=== PATIENT | female | born 1940 | race Caucasian/White ===

== ENCOUNTER → 2016-10-16 | Outpatient (CLI) | payer BC ==
[~2016-10-16] MED LIST: ALPR-411 PO; CALCTAB5 PO; CHOL100010 PO; LISI-461 PO; MULT-506 PO
--- NOTE | 2016-10-16 14:51 | MAMMOGRAPHY REPORT ---
BILATERAL DIGITAL SCREENING MAMMOGRAM WITH CAD: 10/16/2016 CLINICAL HISTORY: Routine screening. Patient has no complaints. TECHNIQUE: Current study was also evaluated with a Computer Aided Detection (CAD) system. Bilatera l CC and MLO views were obtained. COMPARISON: Comparison is made to exams dated: 08/31/2014 mammogram, 10/28/2012 mammogram, 09/11/2011 mammogram, 07/23/2010 mammogram - [facility], and 04/24/2009. BREAST COMPOSITION: The tissue of both breasts is heterogeneously dense, which may obscure small ma sses. FINDINGS: No suspicious masses, calcifications, or areas of architectural distortion are noted in e ither breast. There has been no significant interval change compared to prior exams. Benign-appeari ng left breast masses are stable compared to prior exams. Scattered bilateral benign-appearing calc ifications are not significantly changed. IMPRESSION: ACR BI-RADS CATEGORY 2: BENIGN There is no mammographic evidence of malignancy. A 1 year screening mammogram is recommended. The p atient will receive written notification of the results. Approximately 10% of breast cancers are not detected with mammography. A negative mammographic repor t should not delay biopsy if a clinically suggestive mass is present. Kailey Ruffin M.D. ah/:10/16/2016 14:30:43 Supervisor Irrigation: Sofya VILLALPANDO(Landry)(M), [facility] letter sent: Normal 1/2 BI-RADS Code: ACR BI-RADS Category 2: Benign
== END | disposition home or self-care (01) ==
LOC: C.MAMM 13:48
PROVIDERS: ATTEND Obstetrics & Gynecology
DX: Z12.31 Encounter for screening mammogram for malignant neoplasm of breast (principal)

== ENCOUNTER → 2017-07-30 | Outpatient (CLI) | payer BC ==
[2017-07-30 15:18] LABS: ALT/SGPT 26 U/L (12-78); BLOOD UREA NITROGEN 24 mg/dl (7-18); BUN/CREATININE RATIO 27.5 (10-20); CALCIUM 9.1 mg/dl (8.5-10.1); CARBON DIOXIDE 31 mmol/L (21-32); CHLORIDE 102 mmol/L (98-107); CREATININE 0.86 mg/dl (0.60-1.20); GLUCOSE 109 mg/dl (70-99); POTASSIUM 3.7 mmol/L (3.5-5.1); SODIUM 139 mmol/L (136-145)
[2017-07-30 15:21] LABS: ALB/GLOB RATIO 1.1 (0.9-2); ALKALINE PHOSPHATASE 78 U/L (45-117); AST/SGOT 21 U/L (15-37)
[2017-07-31 05:49] LABS: ESTIMATED AVERAGE GLUCOSE 114 mg/dl; HA1C FLAG Normal (Normal)
== END | disposition home or self-care (01) ==
LOC: C.LAB1850 13:43
PROVIDERS: ATTEND Internal Medicine
DX: E55.9 Vitamin D deficiency, unspecified (principal); I10 Essential (primary) hypertension; R73.03 Prediabetes

== ENCOUNTER → 2017-10-01 | Outpatient (CLI) | payer BC | END | disposition home or self-care (01) | LOC: C.MAMM 14:00 | PROVIDERS: ATTEND Internal Medicine | DX: M85.852 Other specified disorders of bone density and structure, left thigh (principal); M85.851 Other specified disorders of bone density and structure, right thigh ==

== ENCOUNTER 2017-10-15 17:26 | Emergency (ER) | payer BC, OTHER ==
[~2017-10-15] VITALS: Ht 165.1 cm; Wt 64.8 kg
[2017-10-15 17:35] VITALS: TEMP 36.7; Ht 165.1 cm; Wt 64.8 kg
[2017-10-15] MEDS ORDERED: ALPRAZOLAM 0.5 MG TAB PO STA (18:06)
[2017-10-15] MEDS ORDERED: CZR25 PO (18:37)
[2017-10-15] MEDS ORDERED: LOSA1TAB PO (18:37)
[2017-10-15] MEDS ORDERED: TRAZ100T29 PO (18:37)
[2017-10-15] MEDS ORDERED: DIPHTHERIA/TETANUS/PERTUSSIS 0.5 ML SYR/VIAL IM. ONE (18:45)
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
[2017-10-15 19:23] VITALS: BP 162/92; PULSE 77; O2SAT 98
--- NOTE | 2017-10-15 19:31 | EMERGENCY ROOM VISIT NOTE ---
ED Visit Note First contact with patient: 19:00 The patient was seen and examined with PA. I agree with the history, physical and findings. Patient does not wish to have any imaging or blood work done and states she just wants a tetanus shot wants to go home. Please see the note for disposition and details.
== END 2017-10-15 19:26 | disposition home or self-care (01) ==
LOC: C.EDB 17:28 → C.EDD 19:26
DX: S30.811A Abrasion of abdominal wall, initial encounter (principal); S50.311A Abrasion of right elbow, initial encounter; S50.312A Abrasion of left elbow, initial encounter; S80.811A Abrasion, right lower leg, initial encounter; V03.90XA Pedestrian on foot injured in collision with car, pick-up truck or van, unspecified whether traffic or nontraffic accident, initial encounter; W22.8XXA Striking against or struck by other objects, initial encounter; I10 Essential (primary) hypertension; Z23 Encounter for immunization

== ENCOUNTER → 2018-02-02 | Outpatient (CLI) | payer BC ==
[~2018-02-02] MED LIST changes: -ALPR-411 PO; -CALCTAB5 PO; -CHOL100010 PO; +CZR25 PO; -LISI-461 PO; +LOSA1TAB PO; -MULT-506 PO; +TRAZ100T29 PO
[2018-02-02 09:38] LABS: BASO % 0.5 %; BASO ABS # 0.02 K/uL (0-0.2); EOS % 1.9 %; EOS ABS # 0.07 K/uL (0-0.5); HEMATOCRIT 37.6 % (37-47); HEMOGLOBIN 12.8 g/dL (12.0-16.0); LYMPH % 37.7 %; LYMPH ABS # 1.38 K/uL (1.2-3.4); MEAN CELL VOLUME 88.5 fL (80-100); MEAN CORPUSCULAR HEMOGLOBIN 30.1 pg (25-34); MONO % 10.9 %; NEUT ABS # 1.79 K/uL (1.4-6.5); PLATELET COUNT 246 K/uL (130-400); RED CELL DISTRIBUTION WIDTH CV 12.7 % (11.5-14.5); RED CELL DISTRIBUTION WIDTH SD 41.2 fL (36.4-46.3); WHITE BLOOD COUNT 3.66 K/uL (4.8-10.8)
[2018-02-02 11:49] LABS: HEMOGLOBIN A1C 5.5 % (4.5-5.6)
[2018-02-02 13:55] LABS: ALBUMIN 3.6 gm/dl (3.4-5.0); ALT/SGPT 24 U/L (12-78); AST/SGOT 26 U/L (15-37); BLOOD UREA NITROGEN 18 mg/dl (7-18); CALCIUM 8.9 mg/dl (8.5-10.1); CARBON DIOXIDE 29 mmol/L (21-32); CHOLESTEROL 188 mg/dl (0-200); CREATININE 0.86 mg/dl (0.60-1.20); GLUCOSE 93 mg/dl (70-99); SODIUM 141 mmol/L (136-145)
[2018-02-02 14:05] LABS: ALKALINE PHOSPHATASE 75 U/L (45-117); LDL CHOLESTEROL CALCULATED 114 mg/dl; TOTAL PROTEIN 6.9 gm/dl (6.4-8.2)
== END | disposition home or self-care (01) ==
LOC: C.LAB1850 07:44
PROVIDERS: ATTEND Internal Medicine
DX: R73.03 Prediabetes (principal); I10 Essential (primary) hypertension; E55.9 Vitamin D deficiency, unspecified; E78.5 Hyperlipidemia, unspecified

== ENCOUNTER → 2018-04-22 | Outpatient (CLI) | payer BC ==
--- NOTE | 2018-04-22 09:41 | DIAGNOSTIC IMAGING REPORT ---
L HUMERUS MIN 2 VIEWS ROUTINE HISTORY: 77 years-old Female M67.912 Biceps tendinosis of left [id number] acute left shoulder pain COMPARISON: Chest radiograph 03/01/2015 TECHNIQUE: 2 views of the left humerus FINDINGS: There are at least mild degenerative changes about the glenohumeral and AC joints. There is no acute fracture or dislocation identified. Soft tissues are unremarkable without opaque foreign body. IMPRESSION: No acute fracture. The above report was generated using voice recognition software. It may contain grammatical, syntax or spelling errors. Electronically signed by: Maciel Hartley M.D. 04/22/2018 9:40 AM Dictated Date/Time: 04/22/2018 9:38 AM
== END | disposition home or self-care (01) ==
LOC: C.RAD1850 09:31
PROVIDERS: ATTEND Physician Assistant
DX: M67.912 Unspecified disorder of synovium and tendon, left shoulder (principal)

== ENCOUNTER 2019-07-19 08:10 | Observation (INO) ==
[2019-07-19 13:23] LABS: Platelet Count 317 K/uL (130-400)
[2019-07-19 13:46] LABS: INR 1.1 (0.9-1.1); Partial Thromboplastin Ratio 0.9; Partial Thromboplastin Time 25.4 Seconds (21.0-31.0); Prothrombin Time 11.4 Seconds (9.0-12.0)
[2019-07-19] MEDS ORDERED: ACETAMINOPHEN 500 MG TAB PO PRN (14:54)
--- NOTE | 2019-07-19 15:08 | XRay Report ---
XR chest inspiratory-expiratory CLINICAL HISTORY: post thoracentesis PLEURAL EFFUSION COMPARISON STUDY: 07/12/2019 FINDINGS: There is evidence for interval left-sided thoracentesis with marked reduction in the amount of pleural fluid on the left. There is a persistent small right pleural effusion. There are basilar atelectatic changes. No pneumothorax is visualized.[ IMPRESSION: 1. Near complete drainage of the previous identified left pleural effusion 2. Persistent small right pleural effusion 3. Basilar atelectasis 4. No evidence of pneumothorax Electronically signed by: Kojo Gonzalez M.D. 07/19/2019 3:07 PM
--- NOTE | 2019-07-19 15:21 | Ultrasound Report ---
US thoracentesis CLINICAL HISTORY: Pleural effusion COMPARISON STUDY: CT scan dated 07/19/2019 FINDINGS: A timeout was performed. The risks of the procedure were explained the patient informed consent was obtained. The patient was prepped and draped in sterile fashion. The skin was anesthetized 1% lidocaine. Under ultrasound guidance, a left-sided thoracentesis was performed. 1450 cc of straw-colored fluid w as removed. Thousand cc was sent to the laboratory for cytological analysis. There were no immediate complications. A postprocedure x-ray revealed no evidence of pneumothorax. Th e patient will be observed for 2 hours prior to anticipated discharge. IMPRESSION: 1. Successful left-sided thoracentesis. 1450 cc of fluid was removed. Electronically signed by: Kojo Gonzalez M.D. 07/19/2019 3:20 PM
--- NOTE | 2019-07-19 16:57 | XRay Report ---
XR chest inspiration/expiratio CLINICAL HISTORY: post thorocentesis at 16:45 COMPARISON STUDY: Chest 07/19/2019. FINDINGS: Question tiny pneumothorax versus a skin fold within the left upper lung zone. Interval dev elopment of a left lower lung zone airspace opacity. Small right pleural effusion and right basilar d ensities persist. The heart is normal in size. IMPRESSION: 1. Questionable tiny pneumothorax versus skinfold within the left upper lung zone. 2. Interval development of left lower lung zone airspace opacity. This favors reexpansion pulmonary e zoe. An aspiration pneumonia could also have a similar appearance. Electronically signed by: Tera Flowers M.D. 07/19/2019 4:55 PM
--- NOTE | 2019-07-19 18:00 | History & Physical Report ---
Date of Service July 19, 2019 Assessment & Plan (1) Pneumothorax: - S/P thoracentesis on 07/19 for 1450 mL - reports experiencing an episode of SOB and coughing which may correlate with reexpansion - CXR suggests a possible trace pneumothorax vs skinfold and interval development of a LLL opacity which favors reexpansion pulmonary edema but aspiration pneumonia can have similar findings but unlikely at this point - Oxygen saturations have been acceptable; will use continuous oxygen overnight given pneumothorax - Repeat CXR in AM - if any respiratory change will need stat imaging - likely small pneumothorax will resolve spontaneously without further intervention Observation overnight. Likely D/C tomorrow. Present on Admission?: Yes (2) Metastatic adenocarcinoma: - New diagnosis this month - cytology suggests likely ovarian primary with metastasis - follows with Dr. Gallo and Pediatric Cardiologist/Onc in [place] - S/P Paracentesis on 07/07 - Has not initiated chemotherapy at this point; H/O hysterectomy in past due to benign fibroid condition Present on Admission?: Yes (3) Hypertension: - Systolics largely 140-160 - states she normally takes her Losartan and Metoprolol in the evening and likely component of anxiety/stress - Continue Losartan 75 mg HS and Toprol XL 25 mg daily Present on Admission?: Yes (4) Anxiety: - Anxiety/Depression/Insomnia - Does endorse some increased anxiety especially since diagnosis - Will continue Vistaril and Trazadone; per outpatient records it appears she was previously on benzos which were discontinued -- She does endorse some insomnia - if these medications do not help tonight could consider Benadryl; will try to avoid Benzo/Ambien if possible given the possible respiratory depression it can cause in the setting of pneumothorax History of Present Illness Chief Complaint: Shortness of Breath Primary Care Provider: Randall Dunne MD Ms. Blanco is a 78 y/o female with PMHx of HTN, Anxiety/Depression, Insomnia, and Metastatic Adenocarcinoma suggested of Ovarian origin who is S/P thoracentesis this afternoon. Patient presented to PCP earlier this month for early satiety and abdominal bloating. She was ultimately found to have concerns for signficant ascites, pleural effusions, and lesions suggesting a possible carcinomatosis. She underwent paracentesis on 07/07 with cytology suggesting metastatic adenocarcinoma more specifically serous adenocarcinoma that is likely ovarian in origin. Patient underwent a hysterectomy in the past for a benign fibroid condition. She underwent thoracentesis for pleural effusions and further cytology which is pending. She also saw Gyne Onc in [place] yesterday and per Pulm notes the plan is to initiate 3 rounds of chemotherapy followed by repeat staging. She did have some coughing and shortness of breath after thoracentesis. CXR does show a trace pneumothorax and reexpansion edema. Currently she has no respiratory distress and lungs are clear. She does have a intermittent cough but states that has been ongoing prior to the thoracentesis. She does report some worsening of her anxiety since her diagnosis but appears calm at this time. Allergies Allergy/AdvReac Type Severity Reaction Status Date / Time lisinopril Allergy Unknown UNKNOWN Verified 07/19/19 11:00 niacin Allergy Unknown COUGH Verified 07/19/19 11:00 UBALDO Inhibitors AdvReac Verified 07/19/19 11:00 Home Medications Home Medications Medication Instructions Recorded Confirmed Type biotin 5 mg capsule 5 mg PO DAILY cap 06/27/19 07/20/19 History losartan 50 mg tablet 75 mg PO DAILY #180 tab 06/27/19 07/20/19 History magnesium citrate 125 mg capsule 125 mg PO DAILY cap 06/27/19 07/20/19 History metoprolol succinate ER 25 mg 25 mg PO DAILY #1 tab 06/27/19 07/20/19 History tablet,extended release 24 hr multivitamin tablet 1 tab PO DAILY 06/27/19 07/20/19 History trazodone 100 mg tablet 100 mg PO HS #60 tab 06/27/19 07/20/19 History hydroxyzine HCl 25 mg tablet 25 mg PO HS PRN #30 tab 07/08/19 07/20/19 Rx furosemide 20 mg tablet 20 mg PO DAILY #30 tab 07/12/19 07/20/19 Rx Past Med/Surg History Medical History Pleural effusion due to another disorder (Acute) Ascites (Acute) Fullness of abdomen Bloating Acid reflux (Acute) Anxiety (Acute) Aortic regurgitation (Acute) Arthritis (Acute) Chronic pain of toes of both feet (Acute) Depression (Acute) History of osteopenia (Acute) Hyperlipidemia (Acute) Hypertension (Acute) Insomnia (Acute) Mitral regurgitation (Acute) Patent foramen ovale (Acute) Prediabetes (Acute) Rotator cuff tear, left (Acute) Sleep disturbance (Acute) Tricuspid regurgitation (Acute) Vitamin D deficiency disease (Acute) Diverticulosis (Acute) Leukocytopenia (Acute) Hypertension (Acute) Surgical History S/P abdominal hysterectomy Family History Uncle Gastric cancer Sister Hypertension Grandfather (Maternal) Laryngeal cancer Mother Leukemia Grandmother (Maternal) Liver cancer Social History Preferred Language: [place] Operations Manager Station Required: No Beliefs That Will Affect Care: None marital status: Current Living Situation: Alone current occupational status: retired Feels Safe at Home: Yes Smoking Status: Never smoker Hx Alcohol Use: Yes Alcohol type: wine Hx Substance Use: No Seatbelt Use: always Sunscreen Use: Yes Review of Systems Constitutional: no fever, no chills, no fatigue and no anorexia Eyes: no worsening vision Ear, Nose, Mouth, Throat: + hoarseness; no nasal congestion, no sore throat and no dysphagia Respiratory: + cough; no dyspnea, no sputum production and no wheezing Cardiovascular: no chest pain, no palpitations, no lightheadedness and no edema Gastrointestinal: no abdominal pain, no nausea, no vomiting, no constipation and no diarrhea/loose stools Genitourinary: no dysuria Musculoskeletal: no body aches Integumentary: no rash Neurologic: no tingling and no numbness Psychiatric: + anxiety Physical Exam Constitutional: well developed and well nourished; no acute distress and not ill appearing Eyes: + anicteric sclerae ENMT: Ears: no hearing impairment Mouth: oral mucous membranes not dry Throat: uvula midline; no posterior oropharynx abnormality Neck: trachea midline Respiratory: normal respiratory effort lung monte largely clear with some mild crackles in LLL region. Good aeration and no coughing with deep inspiration Cardiovascular: Rate/Rhythm: regular rate and regular rhythm Heart Sounds: no murmur Vessels: no JVD Extremities: normal capillary refill; no edema Gastrointestinal (Abdomen): Inspection/Auscultation: normal bowel sounds Percussion/Palpation: abdomen soft; abdomen nontender Musculoskeletal: no cyanosis or clubbing, extremities motor strength 5/5 Head/Neck/Chest: normocephalic and head atraumatic Skin: no rashes, warm and dry Neurologic: moves all extremities Psychiatric: A+Ox3, euthymic affect Results & Data Vital Signs (Past 12 Hours) Vital Signs Temp Pulse Resp BP Pulse Ox 07/19/19 16:10 65 18 165/82 H 94 07/19/19 15:10 36.6 C 66 18 155/104 H 96 07/19/19 13:16 36.7 C 71 20 168/72 H 93 Code Status & VTE Plan VTE Prophylaxis Plan VTE Prophylaxis will be ordered: No Supervising Physician Co-Signing Physician Notes Patient seen and examined with Abbey LI. I agree with their exam findings, review of systems, assessment and plan. I personally reviewed the lab work and imaging as well. patient with some slight re-expansion edema in left lower lobe of lung and possible small pneumothorax after thoracentesis breathing well, no chest pain, saturations stable - Possible pneumothorax s/p thoracentesis: observe overnight 2L NC continuous, keep saturations > 95% repeat CXR in the morning to determine if pneumothorax has resolved for full details see H&P she will be on observation PG Care Time/CCT Total # of Minutes Spent Total Time Spent with Patient: Total time spent is greater than 50% in coordination of care (as documented) at patient's floor/unit and/or counseling patient:
[2019-07-19] MEDS ORDERED: ACETAMINOPHEN 325 MG TAB PO PRN (19:03)
[2019-07-19] MEDS ORDERED: ONDANSETRON INJ 2 MG/ML 2 ML VIAL IV PRN (19:03)
[2019-07-19] MEDS ORDERED: TRAZODONE HCL 100 MG TAB PO SCH (21:00)
[2019-07-19] MEDS ORDERED: METOPROLOL SUCC 25MG EXT REL TAB PO SCH (21:00)
[2019-07-19] MEDS ORDERED: LOSARTAN POTASSIUM 25 MG TAB PO SCH (21:00)
--- NOTE | 2019-07-20 08:26 | XRay Report ---
XR chest 2V PA/lateral CLINICAL HISTORY: Reexpansion pulmonary edema. Possible post thoracentesis pneumothorax COMPARISON STUDY: 07/19/2019 FINDINGS: The cardiac and mediastinal contours remain stable. There is a small right pleural effusion and trace left pleural effusion. There are improving left lower lobe airspace opacities consistent w ith resolving reexpansion pulmonary edema. No pneumothorax is visualized.[ IMPRESSION: 1. No evidence of pneumothorax 2. Slight improvement in the left lower lobe airspace opacities, likely representing resolving reexpa nsion pulmonary edema Electronically signed by: Kojo Gonzalez M.D. 07/20/2019 8:25 AM
[2019-07-20] MEDS ORDERED: LOSARTAN POTASSIUM 50 MG TAB PO SCH (09:00)
[2019-07-20] MEDS ORDERED: FUROSEMIDE 20 MG TAB PO SCH (09:00)
[2019-07-20] MEDS ORDERED: METOPROLOL SUCC 25MG EXT REL TAB PO SCH (09:00)
[2019-07-20] MEDS ORDERED: MAGNESIUM CITRATE 125 MG PO SCH (09:00)
[2019-07-20] MEDS ORDERED: NON-FORMULARY MEDICATION (Biotin 5 MG) PO SCH (09:00)
[2019-07-20] MEDS ORDERED: MULTIVITAMIN TAB PO SCH (09:00)
--- NOTE | 2019-07-20 11:47 | Discharge Summary ---
Date of Service July 20, 2019 Admission HPI Per Admitting Provider Ms. Blanco is a 78 y/o female with PMHx of HTN, Anxiety/Depression, Insomnia, and Metastatic Adenocarcinoma suggested of Ovarian origin who is S/P thoracentesis this afternoon. Patient presented to PCP earlier this month for early satiety and abdominal bloating. She was ultimately found to have concerns for signficant ascites, pleural effusions, and lesions suggesting a possible carcinomatosis. She underwent paracentesis on 07/07 with cytology suggesting metastatic adenocarcinoma more specifically serous adenocarcinoma that is likely ovarian in origin. Patient underwent a hysterectomy in the past for a benign fibroid condition. She underwent thoracentesis for pleural effusions and further cytology which is pending. She also saw [facility]ne Onc in [place] yesterday and per Pulm notes the plan is to initiate 3 rounds of chemotherapy followed by repeat staging. She did have some coughing and shortness of breath after thoracentesis. CXR does show a trace pneumothorax and reexpansion edema. Currently she has no r espiratory distress and lungs are clear. She does have a intermittent cough but states that has been ongoing prior to the thoracentesis. She does report some worsening of her anxiety since her diagnosis but appears calm at this time. Principal Diagnosis Suspected Pneumothorax S/P Thoracentesis Discharge Exam Constitutional well developed and well nourished; no acute distress and not ill appearing Eyes + anicteric sclerae ENMT Ears: no hearing impairment Mouth: oral mucous membranes not dry Throat: uvula midline; no posterior oropharynx abnormality Neck trachea midline Respiratory normal respiratory effort slightly diminished in L base compared to R base Cardiovascular Rate/Rhythm: regular rate and regular rhythm Heart Sounds: no murmur Vessels: no JVD Extremities: normal capillary refill; no edema Gastrointestinal (Abdomen) Inspection/Auscultation: normal bowel sounds Percussion/Palpation: abdomen soft; abdomen nontender Musculoskeletal no cyanosis or clubbing, extremities motor strength 5/5 Head/Neck/Chest: normocephalic and head atraumatic Skin no rashes, warm and dry Neurologic moves all extremities Psychiatric A+Ox3, euthymic affect Discharge Data Allergies Allergy/AdvReac Type Severity Reaction Status Date / Time lisinopril Allergy Unknown UNKNOWN Verified 07/19/19 11:00 niacin Allergy Unknown COUGH Verified 07/19/19 11:00 UBALDO Inhibitors AdvReac Verified 07/19/19 11:00 Procedures Performed Operation Date: 07/19/19 13:00 Actual Procedures p Thoracentesis - Edmond Gallo Ordered Studies 07/19/19 13:50 US thoracentesis Stat Hospital Course (1) Pneumothorax: - S/P thoracentesis on 07/19 for 1450 mL - reports experiencing an episode of SOB and coughing which may correlate with reexpansion - CXR suggests a possible trace pneumothorax vs skinfold and interval development of a LLL opacity which favors reexpansion pulmonary edema but aspiration pneumonia can have similar findings but unlikely at this point -- F/U CXR on 07/20 shows no pneumothorax and improvement of LLL opacity which favors the re-expansion pulmonary edema - Oxygen saturations have been acceptable and no respiratory compromise - Pulm evaluated patient prior to thoracentesis - pending if reaccumulation occurs may need consideration for Pleur-X in future (2) Metastatic adenocarcinoma: - New diagnosis this month - cytology suggests likely ovarian primary with metastasis - follows with Dr. Gallo and [facility]Onc in [place] - S/P Paracentesis on 07/07 - Has not initiated chemotherapy at this point; H/O hysterectomy in past due to benign fibroid condition (3) Hypertension: - Systolics largely 140-160 - states she normally takes her Losartan and Metoprolol in the evening and likely component of anxiety/stress - Continue Losartan 75 mg HS and Toprol XL 25 mg daily (4) Anxiety: - Anxiety/Depression/Insomnia - Does endorse some increased anxiety especially since diagnosis - Will continue Vistaril and Trazadone; per outpatient records it appears she was previously on benzos which were discontinued Total Time Total Time Spent Total Time Spent (In Minutes): Greater than 30 minutes Discharge Plan Discharge Items Patient Disposition: Home - Self-Care Reason For Visit: SMALL PNEUMOTHORAX Discharge Diagnosis: Small Air Outside Lung (Pneumothorax) Activity: Resume your previous activity Non-emergency contact: Primary Care Provider and Oncologist Call non-emergency contact if: you have any medication questions, your symptoms worsen and your temperature is above 101 Follow-up/Referrals: Randall Dunne MD [Primary Care Provider] - 07/29/19 11:15 am (Please, follow up with Dr. Crocker on ThursdayJuly 29 at 11:15 am. *If you need to change this appointment, call the office at [phone].) Diet: Regular Addtl Attending Provider Instructions: Pneumothorax: - A pneumothorax is when air leaks outside of the lung and goes in the cavity space that surrounds the lung. After the fluid from your chest was removed it appeared there was a little air in this cavity. On chest xray this morning it does not show any air/pneumothorax - When you have fluid removed from your chest it allows the lung to re-expand back into that cavity. Sometimes that can cause some coughing. It is possible with time that the fluid can start to come back in your chest and this will need to be monitored. - If you feel like your coughing is worsening or it gets harder to breath, recommend to get evaluated. - Recommend to take deep breaths and walk when you can to help keep those lungs expanded. Short walks are definitely encouraged but if you get a little short of breath definitely take a break and not overdo it - You can get some mild discomfort from the site and Tylenol can be used for mild discomfort. Keep an eye on the site and get checked out if it gets red, increasingly painful, or has drainage as this could be a sign of infection - You may remove the bandage today. Can use mild soap and water around the site but do not scrub the area until healed. Recommend to not soak in a bathtub until this site is healed - Follow-up with Dr. Gallo as planned for ongoing treatment Home Medications: - Continue your home medications as previously prescribed. We did not make any adjustments to these Pneumothorax: - S/P thoracentesis on 07/19 for 1450 mL - reports experiencing an episode of SOB and coughing which may correlate with reexpansion - CXR suggests a possible trace pneumothorax vs skinfold and interval development of a LLL opacity which favors reexpansion pulmonary edema but aspiration pneumonia can have similar findings but unlikely at this point - Oxygen saturations have been acceptable; will use continuous oxygen overnight given pneumothorax - Repeat CXR in AM - if any respiratory change will need stat imaging - likely small pneumothorax will resolve spontaneously without further intervention Observation overnight. Likely D/C tomorrow. Present on Admission?: Yes (2) Metastatic adenocarcinoma: - New diagnosis this month - cytology suggests likely ovarian primary with metastasis - follows with Dr. Gallo and [facility]Onc in [place] - S/P Paracentesis on 07/07 - Has not initiated chemotherapy at this point; H/O hysterectomy in past due to benign fibroid condition Present on Admission?: Yes (3) Hypertension: - Systolics largely 140-160 - states she normally takes her Losartan and Metoprolol in the evening and likely component of anxiety/stress - Continue Losartan 75 mg HS and Toprol XL 25 mg daily Present on Admission?: Yes (4) Anxiety: - Anxiety/Depression/Insomnia - Does endorse some increased anxiety especially since diagnosis - Will continue Vistaril and Trazadone; per outpatient records it appears she was previously on benzos which were discontinued -- She does endorse some insomnia - if these medications do not help tonight could consider Benadryl; will try to avoid Benzo/Ambien if possible given the possible respiratory depression it can cause in the setting of pneumothorax Pending Studies at Discharge: No Stand-Alone Forms: My [facility] [place], Smoking Cessation Medications and DC Order Prescriptions: Continued hydroxyzine HCl 25 mg tablet 25 mg PO HS PRN (Reason: anxiety) Qty: 30 RF: 0 furosemide [Lasix] 20 mg tablet 20 mg PO DAILY Qty: 30 RF: 0 trazodone 100 mg tablet 100 mg PO HS Qty: 60 RF: 0 biotin 5 mg capsule 5 mg PO DAILY RF: 0 magnesium citrate 125 mg capsule 125 mg PO DAILY RF: 0 losartan 50 mg tablet 75 mg PO DAILY Qty: 180 RF: 0 metoprolol succinate 25 mg tablet extended release 24 hr 25 mg PO DAILY Qty: 1 RF: 0 multivitamin tablet 1 tab PO DAILY RF: 0 Discharge Orders: Discharge Order (Routine); Ordered 07/20/19 Ordered By: Abbey Logan/Other Patient Handouts: Chemo, Fatigue Manage, Oncology [place] W Hair Loss, Chemo Mouth Care, Chemo Nail Care, Nausea Vomit Control, Nutrition Chemo, Chemo Skin Care Admission Data Admit Date/Time: 07/19/19 17:25 Attending Provider: Ayaan Vivas Admit Provider: Ayaan Vivas Primary Care Provider: Randall Dunne V. Other Interventions: Discharge Summary Assessment (RN) Last Done: 07/20/19 12:38 DC Date/Time DO NOT enter until pt leaves facility: 07/20/19 13:34 Supervising Physician Co-Signing Physician Notes Patient seen and examined with Abbey LI. I agree with her discharge summary patient did well overnight, she is stable this morning, breathing well no PTX on the 2 view CXR this morning d/w Dr. Gallo, will d/c to home and his office will arrange follow up for treatment - Possible pneumothorax s/p thoracentesis: observe overnight 2L NC continuous, keep saturations > 95% no PTX on CXR this morning - Metastatic cancer, malignant effusion, s/p thoracentesis follow up at [facility] for treatment
== END 2019-07-20 13:34 | disposition home or self-care (01) ==
LOC: ASU 08:10 → 3W 08:10